=== PATIENT | female | born 1940 | race Caucasian/White ===

== ENCOUNTER 2020-12-26 10:02 | Outpatient (CLI) | payer MEDICARE, OTHER | END 2020-12-26 10:03 | disposition home or self-care (01) | LOC: CSHMRI 10:02 | PROVIDERS: ATTEND Anesthesiology Pain Medicine | DX: M48.02 Spinal stenosis, cervical region (principal); M47.812 Spondylosis without myelopathy or radiculopathy, cervical region; G95.20 Unspecified cord compression | CPT/HCPCS: 72141 ==

== ENCOUNTER 2022-11-01 09:28 | Outpatient (CLI) | payer MEDICARE, OTHER | END 2022-11-01 09:29 | disposition home or self-care (01) | LOC: CSHMRI 09:28 | PROVIDERS: ATTEND Nurse Practitioner Family | DX: M48.062 Spinal stenosis, lumbar region with neurogenic claudication (principal); M47.816 Spondylosis without myelopathy or radiculopathy, lumbar region; M48.061 Spinal stenosis, lumbar region without neurogenic claudication | CPT/HCPCS: 72148 ==

== ENCOUNTER 2025-07-09 08:35 | Outpatient (CLI) | payer MEDICARE, OTHER | END 2025-07-09 08:36 | disposition home or self-care (01) | LOC: CSHRAD 08:35 | PROVIDERS: ATTEND Orthopaedic Surgery | DX: R13.19 Other dysphagia (principal); M47.22 Other spondylosis with radiculopathy, cervical region; Z98.890 Other specified postprocedural states; Z98.1 Arthrodesis status; T84.226A Displacement of internal fixation device of vertebrae, initial encounter; M48.02 Spinal stenosis, cervical region; M50.10 Cervical disc disorder with radiculopathy, unspecified cervical region | CPT/HCPCS: 72125; 74220 ==